=== PATIENT | male | born 1965 | race Caucasian/White ===

== ENCOUNTER 2021-10-14 15:56 | Day surgery (SDC) | payer BC ==
[2021-10-14] MEDS ORDERED: Phenylephrine 2.5% Ophth Soln 5 ML BOT R EYE SCH (16:15)
[2021-10-14] MEDS ORDERED: Cyclopentolate 1% Opth Drop 2 ML BOT R EYE SCH (16:15)
[2021-10-14] MEDS ORDERED: Acetaminophen 500 MG TAB PO PRN (16:15)
[2021-10-14] MEDS ORDERED: Phenylephrine 2.5% Ophth Soln 5 ML BOT ONE (16:17)
[2021-10-14] MEDS ORDERED: Cyclopentolate 1% Opth Drop 2 ML BOT ONE (16:17)
[2021-10-14] MEDS ORDERED: fentaNYL Citrate/PF 100 MCG/2 ML SYRINGE ONE (16:52)
[2021-10-14] MEDS ORDERED: Midazolam HCl 2 mg/2 ml Vial ONE (16:52)
[2021-10-14] MEDS ORDERED: Fluorouracil 100 MG, Enoxaparin Sodium 25 MG, EPINEPHrine 0.3 MG in Ophthalmic Irrigati... IRR SCH (17:15)
[2021-10-14] MEDS ORDERED: Lidocaine 1% MPF 2 ML VIAL ONE (17:43)
[2021-10-14] MEDS ORDERED: Maxitrol 0.1% Opth Oint 3.5 GM TUBE ONE (17:43)
[2021-10-14] MEDS ORDERED: PROPOFOL 200 MG/20 ML VIAL ONE (17:43)
[2021-10-14] MEDS ORDERED: Enoxaparin Sodium 30 MG/0.3 ML SYRINGE ONE (17:43)
[2021-10-14] MEDS ORDERED: CEFAZOLIN 1 GM VIAL ONE (17:43)
[2021-10-14] MEDS ORDERED: Bupivacaine 0.75% 10 ML VIAL ONE (17:43)
[2021-10-14] MEDS ORDERED: Lidocaine 1% PF 5 ML VIAL ONE (17:43)
[2021-10-14] MEDS ORDERED: Lidocaine 4% PF 5 ML AMP ONE (17:43)
[2021-10-14] MEDS ORDERED: Triamcinolone 40 MG/ML VIAL ONE (17:43)
== END 2021-10-14 19:34 | disposition home or self-care (01) ==
LOC: SDC 15:56
PROVIDERS: ATTEND Ophthalmology Retina Specialist
PROC: 08T53ZZ Resection of Left Vitreous, Percutaneous Approach (ICD-10-PCS; principal; 2021-10-14)
DX: H33.012 Retinal detachment with single break, left eye (principal); Z20.822 Contact with and (suspected) exposure to COVID-19
CPT/HCPCS: 87811; J0171; J0690; J1650; J2250; J2704; J3301; J3490; J9190